=== PATIENT | female | born 1990 | race Caucasian/White ===

== ENCOUNTER → 2016-08-31 | Outpatient (CLI) | payer OTHER ==
[~2016-08-31] MED LIST: /MOM400 PO; /ONDA4TA OR; ACET50TA PO; ANUS2.5C2 PR; COLA50CA3 PO; IBUP600T26 PO; NITROFURANTOIN PO; PERC5TAB6 PO; PERCOCET PO; PRENATAL VITAMIN PO; STUATAB PO
[2016-08-31 19:24] LABS: BASO % 0.5 % (0.0-1.0); EOS # 0.1 K/mm3 (0.0-0.50); EOS % 2.4 % (0.0-3.0); LARGE UNSTAINED CELL # 0.1 K/mm3 (0.0-0.4); LARGE UNSTAINED CELL % 1.5 % (0.0-4.0); LYMPH # 1.1 K/mm3 (1.5-6.5); LYMPH % 21.3 % (24.0-44.0); MEAN CORPUSCULAR HEMOGLOBIN 30.9 pg (27.0-33.0); MEAN CORPUSCULAR HGB CONC 33.6 g/dl (32.0-36.5); MEAN CORPUSCULAR VOLUME 92.1 fl (80.0-96.0); MONO # 0.3 K/mm3 (0.0-0.8); MONO % 6.1 % (0.0-5.0); NEUTROPHILS # 3.3 K/mm3 (1.8-7.7); NEUTROPHILS % 68.1 % (36.0-66.0); PLATELET COUNT, AUTOMATED 172 k/mm3 (150-450); RED CELL DISTRIBUTION WIDTH 13.7 % (11.5-14.5); WHITE BLOOD COUNT 4.8 K/mm3 (4.0-10.0)
[2016-09-02 10:34] LABS: HBsAg Prenatal NEGATIVE (NEGATIVE)
[2016-09-02 13:57] LABS: CONTROL LINE INT CTR LINE PRESENT; HIV SCRN NEGATIVE (NEGATIVE); HIV SCRN1 NEGATIVE (NEGATIVE)
== END ==
LOC: M SMT 14:56
PROVIDERS: ATTEND Advanced Practice Midwife
DX: Z34.81 Encounter for supervision of other normal pregnancy, first trimester (principal)

== ENCOUNTER 2016-09-03 19:06 | Outpatient (CLI) | payer OTHER | END 2016-09-03 20:20 | disposition home or self-care (01) | LOC: M LDO 19:06 | PROVIDERS: ATTEND Obstetrics & Gynecology | DX: O26.892 Other specified pregnancy related conditions, second trimester (principal); Z3A.22 22 weeks gestation of pregnancy; R10.12 Left upper quadrant pain; Z88.5 Allergy status to narcotic agent; Z88.0 Allergy status to penicillin ==

== ENCOUNTER → 2016-10-05 | Outpatient (CLI) | payer OTHER ==
--- NOTE | 2016-10-05 10:23 | REP ---
Obstetric ultrasound for anatomy: There is a single intrauterine gestation in a vertex presentation. There is movement and cardiac activity, the heart rate is 133 beats per minute. The placenta is posterior, there is no previa or abruptio. Placenta demonstrates grade 2 zero maturity. Subjectively amniotic fluid volume is normal. The cervix is 4.2 cm length. There are gestational Age: By LMP: unknown By First US: unknown By Today's US: 26 w 5 d Weight: 971 gm/ 2 lbs, 2 oz Wt% 40 % for 26 w 5 d The following anatomic structures are identified and are unremarkable: Cranium, choroid plexus, cavum, cerebellum, cisterna magna, upper lip , facial profile, lungs, four-chamber heart, cardiac right and left ventricular outflow tracts, diaphragm, stomach, cord insertion, three-vessel cord, kidneys, bladder, spine and upper lower extremities. No anomalies are identified. Signed by Topher Clemente MD 10/05/2016 10:15 A
== END ==
LOC: M SMT 08:53
PROVIDERS: ATTEND Specialist
DX: Z34.82 Encounter for supervision of other normal pregnancy, second trimester (principal)

== ENCOUNTER → 2016-12-14 | Outpatient (REF) | payer OTHER ==
[~2016-12-14] MED LIST changes: +FIOR1CAP PO; +OXYC1TAB23 PO; +PRENTAB55 PO; +TYLE500T78 PO
== END ==
LOC: M LAB REF 17:13
PROVIDERS: ATTEND Advanced Practice Midwife
DX: Z34.83 Encounter for supervision of other normal pregnancy, third trimester (principal)

== ENCOUNTER 2016-12-26 07:25 | Inpatient (IN) | payer OTHER ==
[~2016-12-26] VITALS: Ht 154.9 cm; Wt 55.0 kg
[~2016-12-26 07:25] MED LIST changes: -OXYC1TAB23 PO
[2016-12-26 07:42] VITALS: BP 123/76
[2016-12-26] MEDS ORDERED: LR 800 ML IV ONE (07:45)
[2016-12-26] MEDS ORDERED: BICITRA 30ML SOLN UDC PO ONE (07:45)
[2016-12-26] MEDS ORDERED: LR 1,000 ML IV SCH ×3 (07:45→10:45)
[2016-12-26] MEDS ORDERED: ceFAZolin SOD 1 GM in D5W MINI-BAG PLUS 50 ML IV ONE (07:45)
[2016-12-26 08:31] LABS: MEAN CORPUSCULAR HEMOGLOBIN 28.3 pg (27.0-33.0); MEAN CORPUSCULAR HGB CONC 33.2 g/dl (32.0-36.5); MEAN CORPUSCULAR VOLUME 85.3 fl (80.0-96.0); RED CELL DISTRIBUTION WIDTH 13.2 % (11.5-14.5); WHITE BLOOD COUNT 8.6 K/mm3 (4.0-10.0)
[2016-12-26] MEDS ORDERED: OXYTOCIN INJ 10 UNITS/ML VIAL (J2590) As Ordered ONE (08:48)
[2016-12-26] MEDS ORDERED: KETOROLAC 60 MG/2 ML VIAL (J1885) As Ordered ONE (08:48)
[2016-12-26] MEDS ORDERED: MORPHINE PRES-FREE INJ 10 MG/10 ML VIAL (J2274) As Ordered ONE (08:48)
[2016-12-26] MEDS ORDERED: ONDANSETRON 4MG/2ML VIAL (J2405) As Ordered ONE (08:49)
[2016-12-26] MEDS ORDERED: ONDANSETRON 4MG/2ML VIAL (J2405) IV PRN ×3 (09:18→10:45)
[2016-12-26] MEDS ORDERED: NALOXONE INJ 0.4 MG/1 ML VIAL (J2310) IV PRN ×2 (09:18)
[2016-12-26] MEDS ORDERED: NALBUPHINE HCL 10 MG/ML AMP (J2300) IV PRN (09:18)
[2016-12-26] MEDS ORDERED: METOCLOPRAMIDE INJ 10MG/2ML VIAL (J2765) IV PRN ×2 (09:18→10:45)
[2016-12-26] MEDS ORDERED: RHOGAM 300 MCG (1500 IU) INJ (J2790) IM SCH (10:30)
[2016-12-26] MEDS ORDERED: MEASLES,MUMPS,RUBELLA VACCINE INJ (MMR-II) (90707) SC SCH (10:30)
[2016-12-26] MEDS ORDERED: OXYTOCIN DRIP 30 UNITS in APPROPRIATE DILUENT 1 EA IV ONE (10:30)
[2016-12-26] MEDS ORDERED: DOCUSATE SODIUM 100 MG CAP PO PRN (10:30)
[2016-12-26] MEDS ORDERED: PERCOCET 5MG/325MG TAB PO PRN ×2 (10:30→10:45)
[2016-12-26] MEDS ORDERED: fentaNYL 100 MCG/2 ML INJECTION (J3010) IV PRN (10:45)
[2016-12-26] MEDS ORDERED: MEPERIDINE INJ 25 MG/ML VIAL (J2175) IV PRN (10:45)
[2016-12-26] MEDS ORDERED: diphenhydrAMINE INJ 50MG/ML VIAL (J1200) IV PRN (10:45)
[2016-12-26] MEDS ORDERED: KETOROLAC 30 MG/ML VIAL (J1885) IV PRN (10:45)
[2016-12-26 12:00] VITALS: BP 135/85
[2016-12-26] MEDS: PRENATAL VITAMINS CHEWABLE TABLET PO SCH (13:17)
[2016-12-26 13:45] VITALS: BP 113/77
[2016-12-26] MEDS: KETOROLAC 30 MG/ML VIAL (J1885) IV SCH ×2 (15:30→20:46)
[2016-12-26] MEDS: PERCOCET 5MG/325MG TAB PO PRN ×2 (16:34→20:46)
[2016-12-26 17:46] VITALS: BP 146/82
--- NOTE | 2016-12-26 19:22 | RO ---
DATE OF PROCEDURE: 12/26/2016 PREOPERATIVE DIAGNOSIS: 39 weeks gestation, prior section. POSTOPERATIVE DIAGNOSIS: 39 weeks gestation, prior section. PROCEDURE: Repeat low transverse section, bilateral tubal ligation. SURGEON: Arpit Chery MD FIN[employer]CIAL MARKET DEALER: Minesh Barney MD ANESTHESIA: Spinal. FINDINGS: 7 pound 4 ounce or 3282 gram male infant, Apgars 9 and 9. Normal uterus, fallopian tubes and ovaries. IV FLUIDS: 1200 mL. URINE OUTPUT: 100 mL. ESTIMATED BLOOD LOSS: 500 mL. OPERATIVE SUMMARY: The patient was taken to the operating room where spinal anesthesia was induced. She was prepped and draped in a sterile fashion in supine position. A Haynes catheter was placed. A Pfannenstiel skin incision was made with a scalpel and carried through to the fascia. The fascia was nicked and extended. The fascia was dissected off the rectus muscles. Peritoneal cavity was entered. Bladder flap was created. Curvilinear incision was made in the lower uterine segment until clear fluid was noted. This was extended manually. The was delivered from the vertex position without difficulty as well as delivered with ease. The cord was doubly clamped and cut. The was handed off to the awaiting nurses. The placenta was expressed. The uterus was exteriorized and cleared. The uterine incision was closed with #0 Vicryl in a running locked fashion. A second imbricating layer of #0 Vicryl was placed. Attention was turned to the fallopian tubes. A Rock clamp was placed in the midportion of each tube. A window created in the broad ligament. #3-0 chromic tie was placed around a segment of tube on either side of the Rock clamp. A knuckle of tube was excised and sent to pathology bilaterally. The uterus was placed back in the abdominal cavity. Good hemostasis was noted. The peritoneum was closed with #2-0 Vicryl in a running fashion. The fascia was closed with #0 Vicryl in a running fashion. The deep layer was irrigated, skin was closed with #4-0 Monocryl. Sponge, instrument and needle counts were correct.
[2016-12-26 21:17] VITALS: BP 146/82
[2016-12-26] MEDS ORDERED: OXYC1TAB23 PO (21:42)
[2016-12-27 01:23] VITALS: BP 115/62
[2016-12-27] MEDS: KETOROLAC 30 MG/ML VIAL (J1885) IV SCH ×2 (03:04→08:38)
[2016-12-27] MEDS: PERCOCET 5MG/325MG TAB PO PRN ×4 (04:45→20:41)
[2016-12-27 05:44] VITALS: BP 108/62
[2016-12-27 07:18] LABS: MEAN CORPUSCULAR HEMOGLOBIN 29.2 pg (27.0-33.0); MEAN CORPUSCULAR HGB CONC 33.9 g/dl (32.0-36.5); MEAN CORPUSCULAR VOLUME 86.1 fl (80.0-96.0); RED CELL DISTRIBUTION WIDTH 13.5 % (11.5-14.5); WHITE BLOOD COUNT 9.1 K/mm3 (4.0-10.0)
[2016-12-27] MEDS: PRENATAL VITAMINS CHEWABLE TABLET PO SCH (08:38)
[2016-12-27] MEDS ORDERED: MOTR200T44 PO (09:33)
[2016-12-27 10:00] VITALS: BP 108/70
[2016-12-27 13:59] VITALS: BP 122/79
[2016-12-27] MEDS: IBUPROFEN 800 MG TAB PO SCH (17:29)
[2016-12-27 18:00] VITALS: BP 113/72
[2016-12-27 22:04] VITALS: BP 106/55
[2016-12-28] MEDS: IBUPROFEN 800 MG TAB PO SCH ×2 (01:00→09:29)
[2016-12-28] MEDS: PERCOCET 5MG/325MG TAB PO PRN ×3 (02:14→12:58)
[2016-12-28 06:06] VITALS: BP 118/62
--- NOTE | 2016-12-28 07:52 | DSES ---
DATE OF ADMISSION: 12/26/2016 DATE OF DISCHARGE: ADMISSION DIAGNOSES: 39 weeks gestation, history of prior low transverse section, opioid dependence. DISCHARGE DIAGNOSES: 39 weeks gestation, history of prior low transverse section, opioid dependence; delivered via repeat low transverse section with bilateral tubal ligation. DISCHARGE SUMMARY: Lety is a 26-year-old G5, now P5. She has a history of two prior sections and she was scheduled for repeat low transverse section and bilateral tubal ligation at 39 weeks. The scheduled surgery/delivery was uncomplicated. The patient's postoperative course was also uncomplicated. Patient Family Services (PFS) consult was placed, given the patient's opioid dependence and positive drug screen. By postoperative day #2, the patient was meeting all discharge criteria. Vitals on date of discharge: Blood pressure 118/62, pulse 63, respirations 18, temperature 98.0. Heart: Regular rate and rhythm. No murmurs, rubs. Lungs: Clear to auscultation bilaterally. No wheeze, crackles, rales, rhonchi. Abdomen: Soft, nontender, nondistended. The incision was clean, dry and intact without any erythema or induration. No guarding or rebound tenderness. Extremities: Nonedematous, nontender. The preoperative hemoglobin/hematocrit 11.1, 33.5. Postoperative hemoglobin/hematocrit 9.4 and 27.8 consistent with estimated blood loss from the surgery. ASSESSMENT/PLAN: The patient is postop day #2 status post repeat low transverse section, bilateral tubal ligation meeting all discharge criteria. She was given routine infectious, pain, bleeding and wound care instructions. She was given fever precautions as well. The patient is to followup in the office in approximately 2 weeks for incision check. Postoperative medications include Percocet, Motrin and Colace.
[2016-12-28] MEDS: PRENATAL VITAMINS CHEWABLE TABLET PO SCH (08:02)
[2016-12-28] MEDS ORDERED: ADACEL/BOOSTRIX VACCINE (DIPHTH/PERTUSS/ACELL/TETANUS)0.5ML SYR (90715) IM ONE (09:00)
[2016-12-28] MEDS ORDERED: IBUP-1114 PO (11:16)
[2016-12-30 08:08] LABS: GC Butalbital 490 ng/mL (Cutoff=200)
== END 2016-12-28 14:00 | disposition home or self-care (01) | DRG 540 ==
LOC: M LDI 07:25 → M OBS 12:15
PROVIDERS: ADMIT Specialist; ATTEND Specialist
PROC: 0UB70ZZ Excision of Bilateral Fallopian Tubes, Open Approach (ICD-10-PCS; 2016-12-26)
PROC: 10D00Z1 Extraction of Products of Conception, Low, Open Approach (ICD-10-PCS; principal; 2016-12-26 07:30)
DX: O34.211 Maternal care for low transverse scar from previous cesarean delivery (principal); F11.20 Opioid dependence, uncomplicated; O99.324 Drug use complicating childbirth; Z37.0 Single live birth; Z3A.39 39 weeks gestation of pregnancy; Z30.2 Encounter for sterilization